=== PATIENT | female | born 1930 | race Caucasian/White ===

== ENCOUNTER 2017-01-18 05:31 | Emergency (ER) | payer MEDICARE ==
--- NOTE | 2017-01-18 07:51 | CT ---
PRELIMINARY REPORT/[facility]/EMERGENCY AFTER HOURS PROCEDURE: EXAM: CT Head Without Intravenous Contrast CLINICAL HISTORY: 86 years old, female; Injury or trauma; Fall TECHNIQUE: Axial computed tomography images of the head/brain without intravenous contrast. Coronal and sagittal reformatted images were created and reviewed. COMPARISON: No relevant prior studies available. FINDINGS: Brain: Moderate volume loss No hemorrhage.Moderate white matter disease. No edema. Ventricles: Unremarkable. No ventriculomegaly. Bones/joints: Unremarkable. No acute fracture. Soft tissues: Unremarkable. Sinuses: Unremarkable as visualized. No acute sinusitis. Mastoid air cells: Unremarkable as visualized. No mastoid effusion. IMPRESSION: No intracranial hemorrhage.Please see discussion above. Thank you for allowing us to participate in the care of your patient. Dictated and Authenticated by: Rickie Martinez MD 01/18/2017 7:31 AM Central Time ([place] \T\ [place]) FINAL REPORT CT HEAD NONCONTRAST PERFORMED ON AN EMERGENCY BASIS AT 0628 HOURS 01/18/2017 HISTORY: Fall. Head injury. FINDINGS: The findings agree with the preliminary report by Dr. Martinez from [facility]. No acute trau matic injury is demonstrated. Code QA. POS: [facility]
--- NOTE | 2017-01-18 08:08 | CT ---
PRELIMINARY REPORT/[facility]/EMERGENCY AFTER HOURS PROCEDURE: EXAM: CT Cervical Spine Without Intravenous Contrast CLINICAL HISTORY: 86 years old, female; Injury or trauma; Fall; Initial encounter; Blunt trauma and laceration; Withou t foreign body TECHNIQUE: Axial computed tomography images of the cervical spine without intravenous contrast. Coronal and sagittal reformatted images were created and reviewed. COMPARISON: No relevant prior studies available. FINDINGS: Vertebrae: Loss of vertebral body height, presumed degenerative No acute fracture. Bone island at th e C7 level Discs/spinal canal/neural foramina: No acute findings. No spinal canal stenosis. Soft tissues: Enlargement of the right lobe of the thyroid with hypodense lesion measuring approxima tely 2.5 cm Lung apices: Unremarkable as visualized. IMPRESSION: No definite acute cervical fracture observed Right thyroid lesion/mass as noted Thank you for allowing us to participate in the care of your patient. Dictated and Authenticated by: Rickie Martinez MD 01/18/2017 7:32 AM Central Time ([place] \T\ [place]) FINAL REPORT CT CERVICAL SPINE NONCONTRAST PERFORMED ON AN EMERGENCY BASIS AT 0631 HOURS 01/18/2017 HISTORY: Fall. Neck injury. FINDINGS: No comparison. The findings agree with the preliminary report by Dr. Martinez from [facility]. Hypodense rig ht thyroid lobe nodule is confirmed. No acute osseous abnormalities of the cervical spine are appar ent. Degenerative changes are described in the preliminary report. Code QA. POS: [facility]
== END 2017-01-18 09:20 ==
LOC: MADERS 05:31
DX: S01.01XA Laceration without foreign body of scalp, initial encounter (principal); K21.9 Gastro-esophageal reflux disease without esophagitis; I10 Essential (primary) hypertension; Z79.899 Other long term (current) drug therapy; W06.XXXA Fall from bed, initial encounter; Y92.129 Unspecified place in nursing home as the place of occurrence of the external cause
CPT/HCPCS: 12001; 70450; 72125

== ENCOUNTER 2017-03-28 09:59 | Outpatient (CLI) | payer MEDICARE ==
--- NOTE | 2017-03-28 11:58 | RAD ---
CERVICAL SPINE TWO VIEWS: HISTORY: Neck pain. FINDINGS: There is reversal of the normal lordotic curvature. Vertebral body heights are maintained. Osteoph ytosis is present throughout the vertebral bodies and facets. No acute fracture or dislocation. Th e osseous structures are demineralized. IMPRESSION: 1. Cervical spondylosis. No acute osseous abnormalities are demonstrated. 2. Osteoporosis. POS: [facility]
== END 2017-03-28 10:00 | disposition home or self-care (01) ==
LOC: MADRAD 09:59
PROVIDERS: ATTEND Family Medicine
DX: M54.2 Cervicalgia (principal); M47.812 Spondylosis without myelopathy or radiculopathy, cervical region; M81.0 Age-related osteoporosis without current pathological fracture
CPT/HCPCS: 72040